=== PATIENT | female | born 1995 | race Caucasian/White ===

== ENCOUNTER 2018-06-24 02:00 | Emergency (ER) | payer BC ==
[~2018-06-24] VITALS: Ht 157.5 cm; Wt 44.9 kg
--- NOTE | 2018-06-24 02:10 | NUR ---
Patient ambulated with stable gait. AAOX4. Speech clear, speaks in complete sentences. No neuro deficits. Patient came in for c/o uknown allergic reaction. Respiratory even and unlabored. C/o general pruritis and redness. No distress noted. Patient in bed at lowest position, side rails upx2, call light within reach. Fall precautions implemented per protocol. Accompanied by friend at bedside.
[2018-06-24] MEDS ORDERED: FAMOTIDINE. 20 MG/2 ML VIAL IV ONE ×2 (02:15→02:24)
[2018-06-24] MEDS ORDERED: diphenhydrAMINE 50 MG/1 ML VIAL IV ONE (02:15)
[2018-06-24] MEDS ORDERED: methylPREDNISolone SOD SUCC 125 MG/2 ML VIAL IV ONE (02:15)
[2018-06-24] MEDS ORDERED: methylPREDNISolone SOD SUCC 125 MG/2 ML VIAL ONE (02:24)
[2018-06-24] MEDS ORDERED: diphenhydrAMINE 50 MG/1 ML VIAL ONE (02:24)
[2018-06-24] MEDS ORDERED: ONDANSETRON 4 MG/2 ML VIAL ONE (02:49)
[2018-06-24] MEDS ORDERED: ONDANSETRON 4 MG/2 ML VIAL IV ONE (03:00)
--- NOTE | 2018-06-24 03:10 | NUR ---
Patient in bed, no acute distress noted. Per patient itchiness has gone down.
--- NOTE | 2018-06-24 04:11 | NUR ---
Patient swelling has decreased noticeably. Lips still appear swollen but have gone down. Redness under axilla, and pruritus on forearms have ceased. Will continue to monitor per ERMD.
--- NOTE | 2018-06-24 06:07 | NUR ---
Patient discharged to home in stable conditon. Written and verbal after care instructions given. Patient verbalizes understanding of instructions. Patient ambulated with stable gait. Instructed patient to not drive.
[2018-06-24 06:08] VITALS: BP 100/73
== END 2018-06-24 06:09 | disposition home or self-care (01) ==
LOC: ER 02:01
DX: T78.2XXA Anaphylactic shock, unspecified, initial encounter (principal); F17.200 Nicotine dependence, unspecified, uncomplicated; Z91.018 Allergy to other foods; Z91.09 Other allergy status, other than to drugs and biological substances
CPT/HCPCS: 93005; 96374; 96375; 99283; J1200; J2405; J2930; J3490; A4663